=== PATIENT | male | born 1940 | race Caucasian/White ===

== ENCOUNTER 2020-11-14 23:06 | Observation (INO) | payer MEDICARE ==
[~2020-11-14] VITALS: Ht 172.7 cm; Wt 69.0 kg
[~2020-11-14 23:06] MED LIST: GLYBURIDE2.5 MG PO; LISINOPRIL10 MG PO; METFORMIN500 MG PO; NIACIN50 MG PO; SIMVASTATIN20 MG PO
--- NOTE | 2020-11-14 23:06 | NUR ---
ARRIVED VIA STRETCHER WITH HEAD WRAPPED AND DRSG TO RIGHT FOREARM. PT IS ALERT AND ORIENTED BUT DOESN'T KNOW HAPPENED TODAY AND DOESN'T KNOW HOW HE GOT HERE. TRIAGED AT BEDSIDE.
--- NOTE | 2020-11-14 23:30 | NUR ---
HAS MULTIPLE SKIN TEARS OF ARMS AND A LACERATION ACROSS RIGHT BROW. DRIED BLOOD ON FACE AND ARMS. ABRASIONS BOTH KNEES
[2020-11-14 23:40] LABS: HEMATOCRIT 38.6 % (39.0-50.0); HEMOGLOBIN 13.2 g/dl (14.0-18.0); IMMATURE GRANULOCYTES 0.4 % (0.0-5.0); MEAN CELL VOLUME 98.2 fL CALC (80.0-100.0); MEAN CORPUSCULAR HGB 33.6 pG CALC (26.0-32.0); MEAN CORPUSCULAR HGB CONC 34.2 g/dL CAL (32.0-36.0); NEUT# 4.16 thou/uL (1.82-7.42); RED BLOOD COUNT 3.93 mill/uL (4.70-6.10)
[2020-11-14 23:51] LABS: ALBUMIN 4.3 g/dL (3.2-5.0); ALKALINE PHOSPHATASE 72 u/l (38-126); ANION GAP 14 (6-22 (CALC)); BILIRUBIN, TOTAL 0.8 mg/dL (0.0-1.4); BUN 12 mg/dL (8-23); BUN/CREATININE RATIO 11 (12-20 (CALC)); CARBON DIOXIDE 22 mmol/l (22-30); CHLORIDE 101 mmol/l (95-108); CREATININE 1.1 mg/dL (0.7-1.3); ETHYL ALCOHOL 166 mg/dl (0-30); GFR > 60 ML/MIN (>=60 (CALC)); GFR FOR AFR.AMER. > 60 ML/MIN (>=60 (CALC)); POTASSIUM 4.3 mmol/l (3.5-5.1); SGOT/AST 36 u/l (19-48); SODIUM 133 mmol/l (137-146); TOTAL PROTEIN 7.6 g/dL (6.3-8.2)
--- NOTE | 2020-11-15 00:01 | NUR ---
STILL REPEATEDLY STATES HE DOES NOT KNOW HOW HE GOT HERE. REORIENTED SEVERAL TIMES. AWAITING RADIOLOGY RESULTS
--- NOTE | 2020-11-15 00:45 | NUR ---
SKIN TEAR OF RIGHT FOREARM CLEANED AND TEGADERM APPLIED. LEFT ELBOW SKIN TEAR CLEANED AND DRESSING APPLIED. LACERATION OF RIGHT EYEBROW CLEANED AND MD TO APPLY SUTURES. ABRASIONS OF KNEES CLEANED AND LEFT OPEN TO AIR. 2CM SKIN TEAR OF LEFT HAND CLEANED AND TEGADERM APPLIED. PT TOLERATED CLEANING WELL.
--- NOTE | 2020-11-15 01:00 | NUR ---
5 SUTURES TO RIGHT BROW READILY APPLIED BY MD-TOLERATED WELL
[2020-11-15 01:36] LABS: URINE BILIRUBIN - DIPSTICK NEGATIVE (NEGATIVE); URINE BLOOD DIPSTICK NEGATIVE (NEGATIVE); URINE COLOR YELLOW; URINE GLUCOSE - DIPSTICK NEGATIVE (NEGATIVE); URINE KETONE NEGATIVE (NEGATIVE); URINE LEUK ESTERASE NEGATIVE (NEGATIVE); URINE PROTEIN - DIPSTICK NEGATIVE (NEG-TRACE); URINE UROBILINOGEN - DIPSTICK 0.2 E.U./dL (0.2)
[2020-11-15 01:39] LABS: URINE NITRITE - DIPSTICK NEGATIVE (Negative)
--- NOTE | 2020-11-15 01:43 | NUR ---
SPOKE WITH DAUGHTER AMILCAR WHO IS ALSO [place]. SHE AGREED TO ALL TREATMENT AND ADMISSION. SHE SAID THAT SHE WILL COME TO [place] IN AM AND WILL SEE TO HIS DISCHARGE NEEDS. SHE WAS INFORMED OF VIVITATION TIMES AND LIMITS. S
--- NOTE | 2020-11-15 02:00 | NUR ---
PT AND DAUGHTER UNSURE OF MEDICATIONS. DAUGHTER REPORTS PT USES [facility] IN [place]
--- NOTE | 2020-11-15 02:31 | NUR ---
REPORT GIVEN TO ERASTO CRABTREE. TO MS VIA STRETCHER
[2020-11-15 03:40] VITALS: BP 128/76
--- NOTE | 2020-11-15 03:40 | NUR ---
RECEIVED REPORT FROM NURSE EVAN PATIENT TRANSPORTED VIA BED, DENIES PAIN THIS TIME, PATIENT ALERT ORIENTED DROWSY, LACERATION NOTED ON THE RT EYE BROW WITH FIVE STITCHES, FACIAL ABRASIONS AND BRUISING NOTED, SKIN TEARS ON RT ANF LEFT FOREARM , BOTH KNEE ABRASION, SKIN TEAR ON LEFT PALM, PATIENT HAS A G 18 ON LFA NS @ 125CC/HR INFUSING WELL PATIENT CIWA SCORE 0, ORIENTED TOP ROOM AND CALL LIGHT SYSTEM, BEAD ALARM IN PLACE, CALL LIGHT AT REACH/
[2020-11-15 07:20] VITALS: BP 140/74
--- NOTE | 2020-11-15 07:50 | NUR ---
ASSESSMENT IS COMPLETED: IV SITE IS FREE FROM REDNESS OR EDEMA. HR IS REG,PULSES ARE STRONG X4, ABD IS SOFT WITH ACTIVE BS.BREATH SOUNDS ARE CLEAR BILATERALLY, NO C/O SOB, PT HAS DRESSING ON R EYE BROW WITH BANDAID, ALSO OPSITE ON RIGHT KNEE. TELE MONITOR IN PLACE.
--- NOTE | 2020-11-15 09:02 | NUR ---
SPOKE WITH PT DAUGHTER WILL BRING A LIST OF HIS MEDICATIONS WHE SHE COMES TO VISIT. IS AR[facility]EL[facility] FROM [employer]
[2020-11-15 10:29] VITALS: BP 147/78
--- NOTE | 2020-11-15 12:30 | NUR ---
PT IS SITTING IN THE CHAIR. WAITING ON FAMILY TO COME IN. IV SITE IS FREE FROM REDNESS OR EDEMA.
--- NOTE | 2020-11-15 13:15 | NUR ---
PT IS SITTING IN THE CHAIR. FAMILY IN THE ROOM. WAITING ON DISCHARGE INSTRUCTIONS
--- NOTE | 2020-11-15 13:16 | NUR ---
FAMILY IN THE ROOM. INQUIRING WHAT THE PLAN IS FOR DISCHARGE.
[2020-11-15] MEDS ORDERED: DONEPEZIL10 MG PO (13:19)
[2020-11-15] MEDS ORDERED: LISINOPRIL20 M1 PO (13:20)
[2020-11-15] MEDS ORDERED: SIMVASTATIN40 MG PO (13:21)
[2020-11-15] MEDS ORDERED: MULTIVITAMIN1 TA1 PO (13:21)
[2020-11-15 14:54] VITALS: BP 156/75
--- NOTE | 2020-11-15 16:30 | NUR ---
SPOKE WITH PT AND FAMILY RE: DISCHARGE. PT IS WANTING TO KNOW WHAT THE PLAN IS TO DISCHARGE. EXPLAINED RE: REHAB, AND THE NEED TO STAY 1 MORE NIGHT. THE REHAB HAS TO APPROVE AND THEN DISCHARGE WILL TAKE PLACE. VERBALIZED UNDERSTANDING.
--- NOTE | 2020-11-15 18:38 | NUR ---
FAMILY JUST SENT A PAIR OF GLASSES.
[2020-11-15 19:00] VITALS: BP 147/71
--- NOTE | 2020-11-15 20:00 | NUR ---
PT RESTING IN BED UPON ASSESSMENT. NO COMPLAINTS VOICED AT THIS TIME. ASSESSMENT COMPLETED PLEASE SEE DOCUMENTATION. DENIES PAIN. BREATHING IS EVEN AND UNLABORED. PT IS VERY EXCITED TO BE POSSIBLY DISCHARGING TOMORROW. EMS SITE WAS STILL IN RFA, SITE CHANGED AND EMS SITE DISCONTINUED. NEW LINE STARTED IN RAC, 20. SALINE LOCKED. SAFETY PRECAUTIONS IN PLACE, CALL LIGHT WITHIN REACH, BED IN LOWEST POSITION. WILL MONITOR
--- NOTE | 2020-11-16 00:30 | NUR ---
PT RESTING QUIETLY IN BED WITH HIS EYES CLOSED. NO COMPLAINTS VOICED AT THIS TIME. NO S/S OF DISTRESS NOTED. WILL CONTINUE TO MONITOR
[2020-11-16 04:00] VITALS: BP 132/76
--- NOTE | 2020-11-16 04:00 | NUR ---
PT RESTING QUIETLY AND COMFORTABLY IN BED WITH HIS EYES CLOSED. NO COMPLAINTS VOICED AT THIS TIME. DENIES PAIN. PT DENIES [place] EPISODES OF SYNCOPE THIS SHIFT. SAFETY PRECAUTIONS IN PLACE, WILL CONTINUE TO ONITOR
[2020-11-16 05:39] LABS: HEMATOCRIT 39.2 % (39.0-50.0); HEMOGLOBIN 13.1 g/dl (14.0-18.0); MEAN CELL VOLUME 99.5 fL CALC (80.0-100.0); MEAN CORPUSCULAR HGB 33.2 pG CALC (26.0-32.0); MEAN CORPUSCULAR HGB CONC 33.4 g/dL CAL (32.0-36.0); RED BLOOD COUNT 3.94 mill/uL (4.70-6.10); RED CELL DISTRI WIDTH 13.2 % (11.5-15.5)
[2020-11-16 06:03] LABS: ANION GAP 11 (6-22 (CALC)); BUN 13 mg/dL (8-23); BUN/CREATININE RATIO 11 (12-20 (CALC)); CARBON DIOXIDE 24 mmol/l (22-30); CHLORIDE 105 mmol/l (95-108); CREATININE 1.1 mg/dL (0.7-1.3); GFR > 60 ML/MIN (>=60 (CALC)); GFR FOR AFR.AMER. > 60 ML/MIN (>=60 (CALC)); MAGNESIUM 1.6 mg/dL (1.6-2.3); POTASSIUM 3.8 mmol/l (3.5-5.1); SODIUM 136 mmol/l (137-146)
--- NOTE | 2020-11-16 07:30 | NUR ---
ASSESSMENT IS COMPLETED: IV SITE IS FREE FROM REDNESS OR EDEMA. HR IS REG,PULSES ARE STRONG X4, ABD IS SOFT WITH ACTIVE BS., BREATH SOUNDS ARE CLEAR,BILATERALLY, NO C/O SOB. REPLACED THE TELE MONITOR ON PT. PT WANTING TO GO HOME.
[2020-11-16 07:50] VITALS: BP 130/74
--- NOTE | 2020-11-16 08:39 | NUR ---
TELE MONITOR PLACED BACK PT.
[2020-11-16 11:05] VITALS: BP 139/74
--- NOTE | 2020-11-16 11:13 | NUR ---
SPOKE WITH THE DAUGHTER RE: WAITING ON PLANS FOR DISCHARGE. PT NOT WANTING TO WAIT ANYMORE. FAMILY IS CONCERNED : PT LIVES ALONE, AND NOONE HERE TO ASSIST FOR THE BATHROOM. AFRAID HE WILL FALL AGAIN.
--- NOTE | 2020-11-16 12:00 | NUR ---
PT SITTING IN THE CHAIR,. NO DISTRESS NOTED. IV SITE IS FREE FROM REDNESS ORE MYRIAM.
--- NOTE | 2020-11-16 12:18 | NUR ---
SPOKE WITH DAUGHTER IS ON HER WAY AND WILL GO OVER THE DISCHARGE INSTRUCTIONS., IV SITE AND TELE TAKEN OFF , CATHETER INTACT. NO REDNESS OR EDEMA.
--- NOTE | 2020-11-16 12:44 | NUR ---
Discharge instructions given. Patient verbalizes understanding of same. Discharged in stable condition via Wheelchair to Home with family. All belongings sent with pt.
== END 2020-11-16 12:41 | disposition home health service (06) ==
LOC: ED 23:06 → ED-I 23:17 → ED 23:17 → ED-I 11-15 01:06 → ED 11-15 01:53 → MS2 11-15 01:54
PROVIDERS: Emergency Medicine; Nurse Practitioner; ADMIT Internal Medicine; ATTEND Internal Medicine
PROC: 0HQ1XZZ Repair Face Skin, External Approach (ICD-10-PCS; principal; 2020-11-14)
DX: R55 Syncope and collapse (principal); R00.1 Bradycardia, unspecified; F10.129 Alcohol abuse with intoxication, unspecified; I10 Essential (primary) hypertension; E78.5 Hyperlipidemia, unspecified; F03.90 Unspecified dementia, unspecified severity, without behavioral disturbance, psychotic disturbance, mood disturbance, and anxiety; S51.811A Laceration without foreign body of right forearm, initial encounter; S01.111A Laceration without foreign body of right eyelid and periocular area, initial encounter; S80.212A Abrasion, left knee, initial encounter; S80.211A Abrasion, right knee, initial encounter; W19.XXXA Unspecified fall, initial encounter; Y92.009 Unspecified place in unspecified non-institutional (private) residence as the place of occurrence of the external cause; Y90.6 Blood alcohol level of 120-199 mg/100 ml; Z86.79 Personal history of other diseases of the circulatory system; Z20.822 Contact with and (suspected) exposure to COVID-19
CPT/HCPCS: G0378

== ENCOUNTER 2021-12-06 12:57 | Observation (INO) | payer MEDICARE ==
[2021-12-06] VITALS (12 sets, daily range): BP systolic 122–154; BP diastolic 80–96
[~2021-12-06] VITALS: Ht 172.7 cm; Wt 75.0 kg
[~2021-12-06 12:57] MED LIST changes: +DONEPEZIL10 MG PO; +LISINOPRIL20 M1 PO; +MULTIVITAMIN1 TA1 PO; +SIMVASTATIN40 MG PO
[2021-12-06] MEDS ORDERED: VITAMIN B-12500 MCG PO (13:19)
[2021-12-06 13:22] LABS: HEMATOCRIT 48.1 % (39.0-50.0); HEMOGLOBIN 15.7 g/dl (14.0-18.0); IMMATURE GRANULOCYTES 0.3 % (0.0-5.0); MEAN CELL VOLUME 94.5 fL CALC (80.0-100.0); MEAN CORPUSCULAR HGB 30.8 pG CALC (26.0-32.0); MEAN CORPUSCULAR HGB CONC 32.6 g/dL CAL (32.0-36.0); NEUT# 4.52 thou/uL (1.82-7.42); RED BLOOD COUNT 5.09 mill/uL (4.70-6.10); RED CELL DISTRI WIDTH 13.2 % (11.5-15.5)
[2021-12-06 13:43] LABS: ALBUMIN 3.7 g/dL (3.2-5.0); ALKALINE PHOSPHATASE 77 u/l (38-126); ANION GAP 14 (6-22 (CALC)); BILIRUBIN, TOTAL 0.6 mg/dL (0.0-1.4); BUN 32 mg/dL (8-23); BUN/CREATININE RATIO 28 (12-20 (CALC)); CARBON DIOXIDE 20 mmol/l (22-30); CHLORIDE 110 mmol/l (95-108); CREATININE 1.1 mg/dL (0.7-1.3); GFR FOR AFR.AMER. > 60 ML/MIN (>=60 (CALC)); GFR OTHER RACES > 60 ML/MIN (>=60 (CALC)); POTASSIUM 4.4 mmol/l (3.5-5.1); SODIUM 140 mmol/l (137-146); TOTAL PROTEIN 6.7 g/dL (6.3-8.2)
[2021-12-06 13:45] LABS: SGOT/AST 69 u/l (19-48)
[2021-12-06 14:46] LABS: URINE BILIRUBIN - DIPSTICK NEGATIVE (NEGATIVE); URINE BLOOD DIPSTICK SMALL (NEGATIVE); URINE COLOR YELLOW; URINE GLUCOSE - DIPSTICK NEGATIVE (NEGATIVE); URINE KETONE NEGATIVE (NEGATIVE); URINE PH 5.5 (4.5-8.0); URINE PROTEIN - DIPSTICK 30 mg/dL (NEG-TRACE); URINE SPECIFIC GRAVITY 1.025; URINE UROBILINOGEN - DIPSTICK 0.2 E.U./dL (0.2)
[2021-12-06 14:47] LABS: URINE LEUK ESTERASE SMALL (NEGATIVE); URINE NITRITE - DIPSTICK POSITIVE (Negative)
[2021-12-06 14:52] LABS: URINE BACTERIA MANY hpf; URINE SQUAMOUS EPITHELIAL CELL MANY EPI/hpf (0-FEW); URINE WBC 50-100 WBC/hpf (0-5)
[2021-12-07 00:16] VITALS: BP 140/74
[2021-12-07 04:40] VITALS: BP 133/77
[2021-12-07 05:30] LABS: MEAN CORPUSCULAR HGB 31.6 pG CALC (26.0-32.0); MEAN CORPUSCULAR HGB CONC 33.3 g/dL CAL (32.0-36.0); RED BLOOD COUNT 4.43 mill/uL (4.70-6.10); RED CELL DISTRI WIDTH 13.4 % (11.5-15.5)
[2021-12-07 05:39] LABS: ANION GAP 12 (6-22 (CALC)); BUN 27 mg/dL (8-23); BUN/CREATININE RATIO 27 (12-20 (CALC)); CARBON DIOXIDE 22 mmol/l (22-30); CHLORIDE 112 mmol/l (95-108); GFR FOR AFR.AMER. > 60 ML/MIN (>=60 (CALC)); GFR OTHER RACES > 60 ML/MIN (>=60 (CALC)); MAGNESIUM 1.8 mg/dL (1.6-2.3); POTASSIUM 4.2 mmol/l (3.5-5.1); SODIUM 142 mmol/l (137-146)
[2021-12-07 05:47] LABS: HEMATOCRIT 42.1 % (39.0-50.0)
[2021-12-07 08:17] VITALS: BP 176/100
[2021-12-07 08:19] VITALS: BP 140/89
[2021-12-07 10:50] VITALS: BP 136/74
[2021-12-07] MEDS ORDERED: LEVAQUIN750 M1 PO (15:11)
== END 2021-12-07 18:05 ==
LOC: ED 12:57 → ED-I 14:49 → ED 15:08 → MS2 15:09
PROVIDERS: Family Medicine; ADMIT Hospitalist; ATTEND Hospitalist
DX: N39.0 Urinary tract infection, site not specified (principal); U07.1 COVID-19; I12.9 Hypertensive chronic kidney disease with stage 1 through stage 4 chronic kidney disease, or unspecified chronic kidney disease; E11.22 Type 2 diabetes mellitus with diabetic chronic kidney disease; N18.30 Chronic kidney disease, stage 3 unspecified; F03.90 Unspecified dementia, unspecified severity, without behavioral disturbance, psychotic disturbance, mood disturbance, and anxiety; B96.1 Klebsiella pneumoniae [K. pneumoniae] as the cause of diseases classified elsewhere; E78.5 Hyperlipidemia, unspecified; Z91.81 History of falling
CPT/HCPCS: J1650

== ENCOUNTER 2021-12-29 08:31 | Observation (INO) | payer MEDICARE ==
[~2021-12-29] VITALS: Ht 172.7 cm; Wt 76.0 kg
[~2021-12-29 08:31] MED LIST changes: +LEVAQUIN750 M1 PO; +VITAMIN B-12500 MCG PO
[2021-12-29 09:05] LABS: HEMATOCRIT 39.7 % (39.0-50.0); IMMATURE GRANULOCYTES 0.5 % (0.0-5.0); MEAN CELL VOLUME 91.9 fL CALC (80.0-100.0); MEAN CORPUSCULAR HGB 30.1 pG CALC (26.0-32.0); MEAN CORPUSCULAR HGB CONC 32.7 g/dL CAL (32.0-36.0); NEUT# 5.56 thou/uL (1.82-7.42); RED BLOOD COUNT 4.32 mill/uL (4.70-6.10); RED CELL DISTRI WIDTH 13.1 % (11.5-15.5)
[2021-12-29 09:33] LABS: ALBUMIN 3.3 g/dL (3.2-5.0); ALKALINE PHOSPHATASE 89 u/l (38-126); BUN 11 mg/dL (8-23); BUN/CREATININE RATIO 10 (12-20 (CALC)); CARBON DIOXIDE 21 mmol/l (22-30); CHLORIDE 104 mmol/l (95-108); CREATININE 1.1 mg/dL (0.7-1.3); GFR FOR AFR.AMER. > 60 ML/MIN (>=60 (CALC)); GFR OTHER RACES > 60 ML/MIN (>=60 (CALC)); POTASSIUM 4.5 mmol/l (3.5-5.1); SGOT/AST 27 u/l (19-48); TOTAL PROTEIN 6.6 g/dL (6.3-8.2)
[2021-12-29 09:36] LABS: ANION GAP 12 (6-22 (CALC)); SODIUM 132 mmol/l (137-146)
[2021-12-29 09:45] LABS: MYOGLOBIN 63 ng/mL (0 - 121)
[2021-12-29 11:24] LABS: URINE BILIRUBIN - DIPSTICK NEGATIVE (NEGATIVE); URINE BLOOD DIPSTICK NEGATIVE (NEGATIVE); URINE COLOR YELLOW; URINE GLUCOSE - DIPSTICK NEGATIVE (NEGATIVE); URINE KETONE NEGATIVE (NEGATIVE); URINE LEUK ESTERASE TRACE (NEGATIVE); URINE PH 6.5 (4.5-8.0); URINE PROTEIN - DIPSTICK NEGATIVE (NEG-TRACE); URINE SPECIFIC GRAVITY 1.015
[2021-12-29 11:25] LABS: URINE NITRITE - DIPSTICK NEGATIVE (Negative)
[2021-12-29 14:00] VITALS: BP 141/79
[2021-12-29 16:22] VITALS: BP 125/71
[2021-12-29 19:00] VITALS: BP 111/73
[2021-12-29 19:23] VITALS: BP 111/73
[2021-12-30 04:38] VITALS: BP 114/74
[2021-12-30 05:52] LABS: HEMATOCRIT 42.9 % (39.0-50.0); HEMOGLOBIN 14.4 g/dl (14.0-18.0); IMMATURE GRANULOCYTES 0.1 % (0.0-5.0); MEAN CELL VOLUME 90.9 fL CALC (80.0-100.0); MEAN CORPUSCULAR HGB 30.5 pG CALC (26.0-32.0); MEAN CORPUSCULAR HGB CONC 33.6 g/dL CAL (32.0-36.0); NEUT# 4.92 thou/uL (1.82-7.42); RED BLOOD COUNT 4.72 mill/uL (4.70-6.10); RED CELL DISTRI WIDTH 12.9 % (11.5-15.5)
[2021-12-30 06:20] LABS: ANION GAP 13 (6-22 (CALC)); BUN 11 mg/dL (8-23); BUN/CREATININE RATIO 11 (12-20 (CALC)); CARBON DIOXIDE 24 mmol/l (22-30); CHLORIDE 101 mmol/l (95-108); GFR FOR AFR.AMER. > 60 ML/MIN (>=60 (CALC)); GFR OTHER RACES > 60 ML/MIN (>=60 (CALC)); MAGNESIUM 1.8 mg/dL (1.6-2.3); POTASSIUM 4.5 mmol/l (3.5-5.1); SODIUM 133 mmol/l (137-146)
[2021-12-30 07:32] VITALS: BP 141/76
[2021-12-30 08:00] VITALS: BP 141/76
[2021-12-30] MEDS ORDERED: TAM75CAP PO (10:27)
== END 2021-12-30 11:30 ==
LOC: ED 08:31 → ED-I 09:27 → ED 11:32 → MS2 11:33
PROVIDERS: Emergency Medicine; Nurse Practitioner; ADMIT Internal Medicine; ATTEND Internal Medicine
DX: U07.1 COVID-19 (principal); J11.1 Influenza due to unidentified influenza virus with other respiratory manifestations; R53.1 Weakness; R41.0 Disorientation, unspecified; I10 Essential (primary) hypertension; F03.90 Unspecified dementia, unspecified severity, without behavioral disturbance, psychotic disturbance, mood disturbance, and anxiety; E78.5 Hyperlipidemia, unspecified; Z86.79 Personal history of other diseases of the circulatory system
CPT/HCPCS: J1650